=== PATIENT | male | born 1990 | race Two or more races ===

== ENCOUNTER 2019-06-29 23:22 | Emergency (ER) | payer BC ==
[~2019-06-29] VITALS: Ht 182.9 cm; Wt 86.2 kg
[2019-06-29 23:38] VITALS: BP 173/68
[2019-06-30] MEDS ORDERED: HYDROcodone-ACET 10/325MG TAB PO ONE (01:30)
[2019-06-30] MEDS ORDERED: BACLOFEN 10 MG TAB PO ONE (01:30)
== END 2019-06-30 01:47 | disposition home or self-care (01) ==
LOC: EDBD 23:22 → ER 23:26
DX: S16.1XXA Strain of muscle, fascia and tendon at neck level, initial encounter (principal); S40.812A Abrasion of left upper arm, initial encounter; R51 Headache; M25.511 Pain in right shoulder; Z88.8 Allergy status to other drugs, medicaments and biological substances; V43.52XA Car driver injured in collision with other type car in traffic accident, initial encounter; Y93.89 Activity, other specified; Y92.488 Other paved roadways as the place of occurrence of the external cause; Y99.8 Other external cause status
CPT/HCPCS: 72040; 73030; 73060